=== PATIENT | female | born 1985 | race Caucasian/White ===

== ENCOUNTER 2017-05-01 21:53 | Emergency (ER) | payer SELFPAY ==
[2017-05-01 21:56] VITALS: TEMP 36.3
[2017-05-01 22:50] LABS: BASO % 0.2 %; BASO ABS # 0.03 K/uL (0-0.2); EOS % 0.5 %; EOS ABS # 0.06 K/uL (0-0.5); HEMOGLOBIN 15.2 g/dL (12.0-16.0); IG# 0.08 K/uL (0.00-0.02); LYMPH % 31.2 %; LYMPH ABS # 3.88 K/uL (1.2-3.4); MEAN CORPUSCULAR HEMOGLOBIN 30.4 pg (25-34); MEAN CORPUSCULAR HGB CONC 33.8 g/dl (32-36); MEAN PLATELET VOLUME 8.6 fL (7.4-10.4); MONO % 4.9 %; MONO ABS # 0.61 K/uL (0.11-0.59); NEUT % 62.6 %; NEUT ABS # 7.77 K/uL (1.4-6.5); PLATELET COUNT 355 K/uL (130-400); RED CELL DISTRIBUTION WIDTH CV 14.4 % (11.5-14.5); RED CELL DISTRIBUTION WIDTH SD 46.3 fL (36.4-46.3); WHITE BLOOD COUNT 12.43 K/uL (4.8-10.8)
[2017-05-01 23:08] LABS: ALBUMIN 3.9 gm/dl (3.4-5.0); ALT/SGPT 21 U/L (12-78); AST/SGOT 13 U/L (15-37); BLOOD UREA NITROGEN 8 mg/dl (7-18); CALCIUM 8.7 mg/dl (8.5-10.1); CARBON DIOXIDE 21 mmol/L (21-32); CREATININE 0.99 mg/dl (0.60-1.20); GLUCOSE 114 mg/dl (70-99); POTASSIUM 3.6 mmol/L (3.5-5.1); SODIUM 141 mmol/L (136-145)
[2017-05-01] MEDS ORDERED: LORAZEPAM 1 MG TAB SL STA (23:17)
[2017-05-01 23:18] LABS: ALKALINE PHOSPHATASE 122 U/L (45-117); TOTAL PROTEIN 8.1 gm/dl (6.4-8.2)
--- NOTE | 2017-05-01 23:38 | EMERGENCY ROOM VISIT NOTE ---
History Report prepared by Maryan: Julia Jade Under the Supervision of: Dr. Isaura Manjarrez D.O. First contact with patient: 22:59 Chief Complaint: MENTAL HEALTH EVALUATION Stated Complaint: MEDICAL CLEARANCE History of Present Illness The patient is a 31 year old female who presents to the Emergency Room with complaints of persistent suicidal thoughts starting earlier today. The patient has a history of depression, anxiety, and suicidal ideation. She reports drinking too much alcohol with her sister today and having a deep conversation which triggered some suicidal thoughts. When she starts having suicidal thoughts , she starts identifying ways she could hurt herself. Her mother called the police today. She notes that she was hospitalized for suicidal thoughts 1.5 years ago. She has tried hurting herself in the past. She identifies her mother and alcohol as a trigger for her suicidal thoughts. She is currently on Vistaril , Celexa, and trazodone. She denies any recent changes in medications and has been taking them as directed. She denies any recent injury or illness. She does smoke. She denies any drug use. She denies any other medical problems. She denies any auditory or visual hallucinations. She does not have any physical complaints. Source of History: patient Onset: earlier today Position: other (mental health) Symptom Intensity: with plan Quality: other (suicidal thoughts) Timing: other (persistent) Modifying Factors (Worsening): other (alcohol, mother) Note: Pt denies hallucinations, physical complaints. Review of Systems See HPI for pertinent positives & negatives. A total of 10 systems reviewed and were otherwise negative. Past Medical & Surgical Medical Problems: (1) Allergy to sulfa drugs (2) Depression (3) Penicillin allergy (4) Pneumonia (5) Suicide attempt by substance overdose Family History Alcohol abuse Social History Smoking Status: Current Every Day Smoker Marital Status: single Occupation Status: employed Current/Historical Medications Scheduled Buspirone Hcl (Buspirone Hcl), 10 MG PO BID Citalopram Hydrobromide (Celexa), 40 MG PO DAILY Trazodone Hcl (Trazodone), 100 MG PO HS Allergies Coded Allergies: Sulfa Antibiotics (Unverified Allergy, Intermediate, RASH, 06/05/15) Penicillins (Verified Allergy, Unknown, RASH, 06/05/15) Physical Exam Vital Signs Date Time Temp Pulse Resp B/P (MAP) Pulse Ox O2 Delivery O2 Flow Rate FiO2 3/23/18 09:15 100 18 149/82 97 05/02/17 06:34 63 18 109/57 97 Room Air 05/02/17 05:30 67 18 127/63 98 Room Air 05/02/17 03:40 67 18 123/68 97 Room Air 05/02/17 01:24 80 15 115/59 96 Room Air 05/01/17 21:56 36.3 64 18 138/82 100 Room Air Physical Exam GENERAL: smells of cigarettes and alcohol, alert, well appearing, well nourished , no distress, non-toxic EYE EXAM: normal conjunctiva, PERRL and EOM's grossly intact OROPHARYNX: no exudate, no erythema, lips, buccal mucosa, and tongue normal and mucous membranes are moist NECK: supple, no nuchal rigidity, no adenopathy, non-tender LUNGS: Clear to auscultation. Normal chest wall mechanics HEART: no murmurs, S1 normal and S2 normal ABDOMEN: abdomen soft, non-tender, normo-active bowel sounds, no masses, no rebound or guarding. BACK: Back is symmetrical on inspection and there is no deformity, no midline tenderness, no CVA tenderness. SKIN: no rashes and no bruising UPPER EXTREMITIES: upper extremities are grossly normal. LOWER EXTREMITIES: No pitting edema. NEURO EXAM: Normal sensorium, cranial nerves II-XII grossly intact, normal speech, no gross weakness of arms, no gross weakness of legs. Medical Decision & Procedures Laboratory Results 05/01/17 22:32 Red Blood Count 5.00, Mean Corpuscular Volume 90.0, Mean Corpuscular Hemoglobin 30.4, Mean Corpuscular Hemoglobin Concent 33.8, Mean Platelet Volume 8.6, Neutrophils (%) (Auto) 62.6, Lymphocytes (%) (Auto) 31.2, Monocytes (%) (Auto) 4.9, Eosinophils (%) (Auto) 0.5, Basophils (%) (Auto) 0.2, Neutrophils # (Auto) 7.77, Lymphocytes # (Auto) 3.88, Monocytes # (Auto) 0.61, Eosinophils # (Auto) 0.06, Basophils # (Auto) 0.03 05/01/17 22:32 Test 05/01/17 22:29 3/22/18 22:32 Urine Color YELLOW Urine Appearance CLEAR (CLEAR) Urine pH 6.5 (4.5-7.5) Urine Specific [place] 1.007 (1.000-1.030) Urine Protein NEG (NEG) Urine Glucose (UA) NEG (NEG) Urine Ketones NEG (NEG) Urine Occult Blood NEG (NEG) Urine Nitrite NEG (NEG) Urine Bilirubin NEG (NEG) Urine Urobilinogen NEG (NEG) Urine Leukocyte Esterase NEG (NEG) Urine Test NEG (NEG) Urine Opiates Screen NEG (NEG) Urine Methadone, Qualitative NEG (NEG) Urine Barbiturates NEG (NEG) Urine Phencyclidine (PCP) Level NEG (NEG) Ur Amphetamine/Methamphetamine NEG (NEG) MDMA (Ecstasy) Screen NEG (NEG) Urine Benzodiazepines Screen NEG (NEG) Urine Cocaine Metabolite NEG (NEG) Urine Marijuana (THC) POS (NEG) White Blood Count 12.43 K/uL (4.8-10.8) Red Blood Count 5.00 M/uL (4.2-5.4) Hemoglobin 15.2 g/dL (12.0-16.0) Hematocrit 45.0 % (37-47) Mean Corpuscular Volume 90.0 fL (80-100) Mean Corpuscular Hemoglobin 30.4 pg (25-34) Mean Corpuscular Hemoglobin Concent 33.8 g/dl (32-36) Platelet Count 355 K/uL (130-400) Mean Platelet Volume 8.6 fL (7.4-10.4) Neutrophils (%) (Auto) 62.6 % Lymphocytes (%) (Auto) 31.2 % Monocytes (%) (Auto) 4.9 % Eosinophils (%) (Auto) 0.5 % Basophils (%) (Auto) 0.2 % Neutrophils # (Auto) 7.77 K/uL (1.4-6.5) Lymphocytes # (Auto) 3.88 K/uL (1.2-3.4) Monocytes # (Auto) 0.61 K/uL (0.11-0.59) Eosinophils # (Auto) 0.06 K/uL (0-0.5) Basophils # (Auto) 0.03 K/uL (0-0.2) RDW Standard Deviation 46.3 fL (36.4-46.3) RDW Coefficient of Variation 14.4 % (11.5-14.5) Immature Granulocyte % (Auto) 0.6 % Immature Granulocyte # (Auto) 0.08 K/uL (0.00-0.02) Anion Gap 9.0 mmol/L (3-11) Estimated GFR () 87.4 Estimated GFR (Non- 75.4 BUN/Creatinine Ratio 8.1 (10-20) Calcium Level 8.7 mg/dl (8.5-10.1) Total Bilirubin 0.4 mg/dl (0.2-1) Aspartate Amino Transf (AST/SGOT) 13 U/L (15-37) Alanine Aminotransferase (ALT/SGPT) 21 U/L (12-78) Alkaline Phosphatase 122 U/L (45-117) Total Protein 8.1 gm/dl (6.4-8.2) Albumin 3.9 gm/dl (3.4-5.0) Globulin 4.2 gm/dl (2.5-4.0) Albumin/Globulin Ratio 0.9 (0.9-2) Thyroid Stimulating Hormone (TSH) 1.670 uIu/ml (0.300-4.500) Free Thyroxine 1.29 ng/dl (0.80-1.60) Salicylates Level 4.0 mg/dl (2.8-20) Acetaminophen Level < 2 ug/ml (10-30) Ethyl Alcohol mg/dL 312.2 mg/dl (0-3) Laboratory results per my review. Medications Administered Medications (Trade) Dose Ordered Sig/Cristian Route Start Time Stop Time Status Last Admin Dose Admin Lorazepam (Ativan Tab) 2 mg NOW STAT SL 05/01/17 23:17 05/01/17 23:18 DC 05/01/17 23:22 2 MG ED Course 2304: The patient was evaluated in room A6. A complete history and physical exam was performed. 2316: Ativan Tab 2 mg SL. 0800: Pt seen/evaluated by psych director of casework department. patient is denying suicidal ideation or depression. Admits to drinking alcohol with her sister last night. Patient is currently been on probation due to alcohol-related events previously. Police were contacted and then probation officers. Pt to be picked up by probation officers. The psychiatric case packer and sealer Melanie and I did not feel patient meets inpatient criteria at this time. Discussed with her that if she did become to feel suicidal while incarcerated, this should be brought to their attention she can be seen by psychiatry there. Medical Decision Differential diagnosis: Etiologies such as mood disorder, infection, hypoglycemia, electrolyte abnormalities, cardiac sources, intracerebral event, toxicologic, neurologic, as well as others were entertained. Medication Reconcilliation Current Medication List: was personally reviewed by me Blood Pressure Screening Patient's blood pressure: Normal blood pressure Blood pressure disposition: Did not require urgent referral Impression Primary Impression: Alcohol intoxication Scribe Attestation The scribe's documentation has been prepared under my direction and personally reviewed by me in its entirety. I confirm that the note above accurately reflects all work, treatment, procedures, and medical decision making performed by me. Departure Information Dispostion Other Referrals No Doctor, Assigned (PCP) Patient Instructions My [facility] Additional Instructions You may return to the ER at any time. Please take your medications as prescribed. Please do not drink alcohol. Please do not use recreational drugs. Problem Qualifiers Primary Impression: Alcohol intoxication Complication of substance-induced condition: uncomplicated Qualified Codes: F10.920 - Alcohol use, unspecified with intoxication, uncomplicated
[2017-05-02] MEDS ORDERED: CITA40TA12 PO (00:30)
[2017-05-02] MEDS ORDERED: TRAZ100T29 PO (00:31)
[2017-05-02] MEDS ORDERED: BUSP-8 PO (00:32)
[2017-05-02 09:15] VITALS: BP 149/82; PULSE 100; O2SAT 97
== END 2017-05-02 09:23 | disposition home or self-care (01) ==
LOC: C.EDB 21:55 → C.EDA 05-02 09:23
DX: F10.920 Alcohol use, unspecified with intoxication, uncomplicated (principal); R45.851 Suicidal ideations; F32.9 Major depressive disorder, single episode, unspecified; F41.9 Anxiety disorder, unspecified; Z79.899 Other long term (current) drug therapy; Z88.0 Allergy status to penicillin; Z88.2 Allergy status to sulfonamides; Z81.1 Family history of alcohol abuse and dependence; F17.200 Nicotine dependence, unspecified, uncomplicated

== ENCOUNTER 2024-09-15 23:25 | Inpatient (IN) ==
[2024-09-16 00:25] LABS: Hematocrit (blood only) 38.1 % (37.0-47.0); Hemoglobin 12.9 g/dl (12.0-16.0); Immature Granulocytes # (auto) 0.03 K/uL (0.01-0.20); Immature Granulocytes % (auto) 0.4 %; Mean Corpuscular Hemoglobin 30.2 pg (25.0-34.0); Mean Corpuscular Volume 89.2 fL (80.0-100.0); Platelet Count 367 K/uL (130-400); RDW Standard Deviation 42.3 fL (36.4-46.3); Red Blood Count 4.27 M/uL (4.20-5.40); White Blood Count 8.18 K/ul (4.8-10.8)
[2024-09-16 00:44] LABS: Alanine Aminotransferase 12 U/L (7-52); Albumin Globulin Ratio 1.4 (0.9-2); Alkaline Phosphatase 76 U/L (34-104); Anion Gap 10 (3-11); Bilirubin,Total 1.0 mg/dl (0.2-1.0); Blood Urea Nitrogen 15 mg/dl (6-23); Calcium 9.3 mg/dl (8.6-10.3); Carbon Dioxide 21 mmol/L (21-32); Chloride 107 mmol/L (98-107); Globulin 3.2 gm/dl (2.5-4.0); Glucose 93 mg/dl (70-99(Fasting)); Potassium 3.5 mmol/L (3.5-5.1); Sodium 138 mmol/L (136-145); Total Protein 7.6 gm/dl (6.0-8.3)
[2024-09-16 00:46] LABS: Pregnancy Test, Serum Negative (Negative)
[2024-09-16 00:50] LABS: Acetaminophen < 3 ug/ml (10-30); Salicylate < 3.0 mg/dl (3.0-30)
[2024-09-16 00:54] LABS: Appearance Urine Cloudy (Clear); Bacteria Urine Automated 1+ (None Seen); Cast Urine Automated 0-2 /lpf (0-2); Glucose Urine UA Negative (Negative)
[2024-09-16 00:57] LABS: Thyroid Stimulating Hormone 1.759 uIu/ml (0.300-4.500)
[2024-09-16 01:32] LABS: Amphetamines+Metham, Urine Pos (Neg); MDMA (Ecstacy), Urine Pos (Neg); Marijuana, Urine Pos (Neg)
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
--- NOTE | 2024-09-16 09:59 | Emergency Department Note ---
ED Visit Note Accepted by [address] [place] [address]. .
[2024-09-16] MEDS ORDERED: ALUMINUM/MAGNESIUM SUSP 30 ML UDC PO PRN (14:30)
[2024-09-16] MEDS ORDERED: ACETAMINOPHEN 325 MG TAB PO PRN (14:30)
[2024-09-16] MEDS ORDERED: BISMUTH SUBSALICYLATE 262 MG CHEW PO PRN (14:30)
[2024-09-16] MEDS ORDERED: SODIUM CHLORIDE 0.65% NA SOLN 45 ML (OCEAN) PRN (14:30)
[2024-09-16] MEDS ORDERED: MAGNESIUM HYDROXIDE SUSP 30 ML UDC PO PRN (14:30)
[2024-09-16] MEDS ORDERED: NICOTINE POLACRILEX 2 MG GUM MT PRN (14:30)
[2024-09-16 14:50] VITALS: RESP 16; O2SAT 99
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
[2024-09-16] MEDS: NICOTINE 21 MG/24 HR TDSY TD SCH (17:07)
[2024-09-16] MEDS: REMOVE NICODERM PATCH SCH (17:47)
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
[2024-09-17] MEDS ORDERED: REMOVE NICODERM PATCH SCH (08:59)
[2024-09-17] MEDS ORDERED: NICOTINE 14 MG/24 HR PATCH TD SCH (09:00)
[2024-09-18 06:33] VITALS: TEMP 97.3
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
[2024-09-18 12:33] VITALS: BP 117/77; PULSE 76
[2024-09-21 12:52] LABS: Amphetamine Urine, Confirm 10007 ng/mL (<250); MDA negative; MDEA negative; MDMA (Ecstasy) Urine, Confirm negative; Marijuana Quant, GCMS Urine 3290 ng/mL (<5); Methamphetamine, Ur Confirm >15000 ng/mL (<250)
== END 2024-09-18 13:37 | disposition home or self-care (01) | DRG 882 ==
LOC: ED 23:25 → 3S 09-16 13:48